=== PATIENT | female | born 1995 | race Hispanic/Latino ===

== ENCOUNTER 2016-11-12 00:51 | Emergency (ER) | payer SELFPAY ==
[2016-11-12 01:04] VITALS: BP 108/71; PULSE 83; RESP 16; TEMP 99.4; O2SAT 100
[2016-11-12] MEDS ORDERED: Sodium Chloride 0.9% 1,000 ML IV STA (01:38)
--- NOTE | 2016-11-12 01:39 | ED PDOC ---
HPI: CCC, URI, Sore Throat Time Seen by Provider: 11/12/16 00:58 Chief Complaint (Nursing): Fever Chief Complaint (Provider): Fever History Per: Patient Additional Complaint(s): Pt brought to ER via EMS for eval of cough, nausea, headache and sore throat - difficulty sleeping. Past Medical History Reviewed: Nursing Documentation, Vital Signs Vital Signs: Last Vital Signs Temp 99.4 F 11/12/16 00:59 Pulse 83 11/12/16 00:59 Resp 16 11/12/16 00:59 BP 108/71 11/12/16 00:59 Pulse Ox 100 11/12/16 01:39 - Medical History PMH: No Chronic Diseases - Surgical History Surgical History: No Surg Hx - Family History Family History: States: No Known Family Hx - Living Arrangements Living Arrangements: With Family - Social History Current smoker - smoking cessation education provided: No Alcohol: None Drugs: Denies - Allergies Allergies/Adverse Reactions: Allergies Allergy/AdvReac Type Severity Reaction Status Date / Time No Known Allergies Allergy Verified 11/12/16 01:18 Review of Systems ROS Statement: Except As Marked, All Systems Reviewed And Found Negative Physical Exam - Reviewed Nursing Documentation Reviewed: Yes Vital Signs Reviewed: Yes - Physical Exam Appears: Positive for: Well, Non-toxic, No Acute Distress Head Exam: Positive for: ATRAUMATIC, NORMAL INSPECTION, NORMOCEPHALIC Skin: Positive for: Normal Color, Warm, DRY Eye Exam: Positive for: EOMI, Normal appearance, PERRL ENT: Positive for: Normal ENT Inspection Neck: Positive for: Normal, Painless ROM Cardiovascular/Chest: Positive for: Regular Rate, Rhythm Respiratory: Positive for: CNT, Normal Breath Sounds Gastrointestinal/Abdominal: Positive for: Normal Exam, Bowel Sounds, Soft Back: Positive for: Normal Inspection Extremity: Positive for: Normal ROM Neurologic/Psych: Positive for: Alert, Oriented - Laboratory Results Result Diagrams: 11/12/16 01:52 11/12/16 01:52 - ECG O2 Sat by Pulse Oximetry: 100 Disposition - Clinical Impression Clinical Impression: Viral syndrome - Patient ED Disposition Is Patient to be Admitted: No - Disposition Disposition: Routine/Home Disposition Time: 05:25 Condition: STABLE Instructions: Viral Syndrome (ED) Forms: [employer] (Azeri)
[2016-11-12 01:56] LABS: BASO % 0.2 % (0.0-2.0); HEMATOCRIT 40.6 % (34.0-47.0); LYMPH % 17.6 % (20.0-40.0); MEAN CORPUSCULAR HEMOGLOBIN 30.4 pg (27.0-31.0); MEAN CORPUSCULAR HGB CONC 33.1 g/dL (33.0-37.0); MEAN PLATELET VOLUME 9.6 fl (7.2-11.7); MONO # 0.8 K/uL (0.0-0.8); MONO % 14.9 % (0.0-10.0); NEUT # 3.7 K/uL (1.8-7.0); NEUT % 67.3 % (50.0-75.0); RED CELL DISTRIBUTION WIDTH 13.3 % (11.5-14.5); WHITE BLOOD COUNT 5.5 K/uL (4.8-10.8)
[2016-11-12 02:04] LABS: BLOOD UREA NITROGEN 10 mg/dl (7-17); CALCIUM 9.2 mg/dL (8.4-10.2); CARBON DIOXIDE 25 mmol/L (22-30); CHLORIDE 102 mmol/L (98-107); GFR AFRICAN-AMERICAN > 60; GLUCOSE,RANDOM 85 mg/dL (65-105); POTASSIUM 3.7 MMOL/L (3.6-5.0); SODIUM 136 mmol/l (132-148); TOTAL PROTEIN 7.1 G/DL (6.3-8.2)
[2016-11-12 02:05] LABS: ALB/GLOB RATIO 1.4 (1.0-2.1); ALKALINE PHOSPHATASE 94 U/L (38-126); ALT/SGPT 29 U/L (9-52); AST/SGOT 23 U/L (14-36); BILIRUBIN,TOTAL 0.4 mg/dl (0.2-1.3)
== END 2016-11-12 06:20 | disposition home or self-care (01) ==
LOC: H.ER 00:51
DX: B34.9 Viral infection, unspecified (principal); J02.9 Acute pharyngitis, unspecified
CPT/HCPCS: 80053; 85025; 87070; 87430; 96374; 99282; J1885; J7040